=== PATIENT | male | born 1960 | race Two or more races ===

== ENCOUNTER 2024-04-16 10:51 | Emergency (ER) | payer OTHER ==
[~2024-04-16] VITALS: Ht 172.7 cm; Wt 81.6 kg
[2024-04-16] MEDS ORDERED: GLUMETZA500 MG PO (11:38)
[2024-04-16] MEDS ORDERED: COZAAR25 MG PO (11:41)
[2024-04-16] MEDS ORDERED: SYNTHROID100 MCG PO (11:42)
[2024-04-16] MEDS ORDERED: RESTORIL15 M1 PO (11:42)
[2024-04-16] MEDS ORDERED: PROZAC40 MG PO (11:42)
== END 2024-04-16 13:39 | disposition home or self-care (01) ==
LOC: ER 10:53
DX: F12.10 Cannabis abuse, uncomplicated (principal); E11.9 Type 2 diabetes mellitus without complications; Z79.84 Long term (current) use of oral hypoglycemic drugs; I10 Essential (primary) hypertension; F41.8 Other specified anxiety disorders